=== PATIENT | female | born 2000 | race Caucasian/White ===

== ENCOUNTER 2021-07-06 08:56 | Outpatient (REF) | payer OTHER, SELFPAY | END 2021-07-06 08:57 | disposition home or self-care (01) | LOC: HO.LAB 08:56 | PROVIDERS: Visit Provider Internal Medicine | DX: Z20.822 Contact with and (suspected) exposure to COVID-19 (principal) | CPT/HCPCS: C9803; U0003; U0005 ==

== ENCOUNTER 2021-11-19 12:47 | Emergency (ER) | payer OTHER, SELFPAY ==
--- NOTE | ~2021-11-19 | XR_ITS ---
EXAMINATION: XR KNEE, LEFT CLINICAL INFORMATION: Pain. Injury. COMPARISON: Right knee x-rays the 2016 TECHNIQUE: Four views of the left knee. FINDINGS: No fracture or dislocation. No suprapatellar joint effusion. Joint spaces are well-maintained. No appreciable degenerative changes. No soft tissue swelling of the anterior knee. XR/XR knee LT 3V IMPRESSION: Unremarkable radiographs of the right knee.
[2021-11-19 13:13] VITALS: BP 149/71; PULSE 95; RESP 17; TEMP 36.3; O2SAT 98; BMI 41.6
--- NOTE | 2021-11-19 16:08 | ED_ITS ---
HPI - Extremity Problem General Chief complaint: Extremity Problem Stated complaint: l knee inj Time Seen by Provider: 11/19/21 15:42 Source: patient Mode of arrival: ambulatory Limitations: no limitations History of Present Illness HPI Narrative: 21-year-old obese female presents with left knee pain. States the pain has started 2 weeks ago, and this morning her knee was squishy and purple below her kneecap. Patient states she tore something 2 years ago but because of COVID never followed up with Orthopedics. States it hurts to walk, although she can bear weight. States ice helps reduce the swelling Related Data Previous Rx's Medication Instructions Recorded naproxen 500 mg tablet 500 mg PO BID 10 Days #20 tab 11/19/21 Allergies Allergy/AdvReac Type Severity Reaction Status Date / Time aldana AdvReac Unknown VOMITS Verified 11/19/21 13:15 CHOCOLATE Allergy Unknown HIVES FROM Uncoded 03/25/20 18:36 REESE CHOCOLATE Review of Systems Constitutional: Constitutional: Denies body ache(s), Denies chills, Denies fatigue, Denies fever(s), Denies headache(s), Denies malaise and Denies weakness Eyes: Eyes: Denies diplopia ENT: Denies vertigo, Denies dizziness, Denies headache(s) and Denies throat swelling Cardiovascular: Cardiovascular: Denies chest pain, Denies syncope, Denies leg edema, Denies lightheadedness, Denies Loss of Consciousness, Denies palpitations and Denies dyspnea Respiratory: Respiratory: Denies chest congestion, Denies cough and Denies dyspnea Gastrointestinal: Gastrointestinal: Denies abdominal pain, Denies hematochez ia, Denies constipation, Denies diarrhea and Denies vomiting Musculoskeletal: Musculoskeletal: Reports abnormal gait, Reports arthralgias, Reports joint swelling, Reports limited range of motion, Denies muscle weakness, Denies numbness and Denies tingling Neurologic: Reports abnormal gait, Denies confusion, Denies vertigo, Denies dizziness, Denies syncope, Denies headache(s), Denies numbness, Denies tingling and Denies weakness Psychiatric: Psychiatric: Denies anxiety, Denies confusion and Denies depression Endocrine: Endocrine: Denies fatigue and Denies palpitations Allergic/Immunologic: Allergic/Immunologic: Denies throat swelling [facility] Social History Social History Advance Directives: No Advance Directives Information Provided: No Physical Exam Vital Signs: Vital Signs: Last Vital Signs Temp 97.4 F 11/19/21 13:13 Pulse 95 11/19/21 13:13 Resp 17 11/19/21 13:13 BP 149/71 H 11/19/21 13:13 Pulse Ox 98 11/19/21 13:13 BMI result Body Mass Index 41.6 Const: General: No confusion Nutritional Appearance: well nourished Orientation/consciousness: No confusion Limitations: no limitations Eyes: Conjunctivae: conjunctivae normal Pupils: Equal, round and reactive pupils present EOM: EOMs intact bilaterally Neck: Neck: Yes full ROM, Yes no lymphadenopathy and Yes supple Resp: Effort & Inspection: normal respiratory effort and able to speak in complete sentences Auscultation: clear to auscultation bilaterally, no crackles, no rales, no rhonchi and no wheezes Cardio: Rate: regular rate Rhythm: regular rhythm Heart sounds: S1 normal heart sound present and S2 normal heart sound present GI: Inspection: Yes normal to inspection Palpation (GI): Soft to palpation, nontender, no guarding and not rigid Percussion: Yes normal to percussion Auscultation: normal bowel sounds Skin: General skin exam: no rashes or lesions noted Neuro: General: No confusion Cranial nerves: Yes Equal, round and reactive pupils present Extrem: Left lower extremity: normal capillary refill and knee Details: tenderness Location: of the patella Details: superiorly and inferiorly and of the popliteal fossa, swelling, abnormal ROM Details: pain with active ROM Details: with flexion and pain with passive ROM Details: with flexion and knee ligament exam normal; Negative for no ecchymosis, no crepitus, no deformity and no unusual warmth; No no cyanosis and no edema Psych: Appearance: grossly normal Affect: normal affect Attitude: cooperative Thought process: Normal thought process present Course Course Course Narrative: 21-year-old female presents with atraumatic left knee pain that started 2 weeks ago and was worse this morning. 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 On exam, patient has stable vitals, patient has a anterior mild diffusion inferior and medial to the patella. 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 Patient has intact left lower extremity pulses, sensation, motor strength, and reflexes. She does have limited range of motion of her left knee in flexion due to pain. Counseled rest, ice, compression, elevation, prescribed naproxen, gave knee immobilizer and crutches, follow-up with orthopedics. Patient verbalized agreement understanding of the plan. All of her questions were answered. Discharge Plan Discharge Clinical Impression: Effusion of knee joint, left Patient Disposition: Home, Self-Care Instructions: Swollen Knee Joint (ED), R.I.C.E. Treatment (ED) Additional Instructions: I have referred you to Orthopedics, but they should be calling you as well. Please call them at the following number if you have not heard from them by tomorrow afternoon [phone] I please use a knee immobilizer and crutches, and stay out of work until Orthopedics clears you to start working again. Please fill the prescription for naproxen and take it as prescribed Please rest, ice, elevate, and use the knee immobilizer on your left knee Please return to emergency room for any new or concerning symptoms Prescriptions: New naproxen 500 mg tablet 500 mg PO BID 10 Days Qty: 20 0RF Referrals: Abe Reese MD [Physician] - Stand Alone Forms: Work/School Release
== END 2021-11-19 16:43 | disposition home or self-care (01) ==
PROVIDERS: Emergency Provider Internal Medicine; PCP Pediatrics
DX: M25.462 Effusion, left knee (principal); E66.9 Obesity, unspecified; Z68.41 Body mass index [BMI] 40.0-44.9, adult
CPT/HCPCS: 73562; 99283

== ENCOUNTER 2021-12-06 07:42 | Outpatient (REF) | payer OTHER, SELFPAY ==
--- NOTE | ~2021-12-06 | XR_ITS ---
EXAMINATION: XR KNEE, LEFT CLINICAL INFORMATION: Pain. COMPARISON: 11/19/2021 TECHNIQUE: [place] view of the left knee. FINDINGS: There is a normal sunrise view of the patella with maintenance of the patellofemoral joint and no significant spurring or other bony abnormality appreciated. XR/XR knee LT 1V IMPRESSION: Normal sunrise view of the left knee.
== END 2021-12-06 07:43 | disposition home or self-care (01) ==
LOC: HO.HOSX 07:42
PROVIDERS: Visit Provider Physician Assistant
DX: M23.92 Unspecified internal derangement of left knee (principal)
CPT/HCPCS: 73560; 99202

== ENCOUNTER 2022-01-04 22:46 | Emergency (ER) | payer OTHER, SELFPAY ==
[2022-01-04 22:52] VITALS: BP 144/81; PULSE 105; RESP 18; TEMP 36.8; O2SAT 99; BMI 43.1
[2022-01-04] MEDS: Ondansetron ODT 4 MG TAB.RAPDIS TRANSLINGU (22:57)
[2022-01-04 23:05] LABS: MANUAL DIFF FLAG NO
[2022-01-04 23:12] LABS: Basophils Percent Auto 0.4 % (0-2); Eosinophils Absolute Auto 0.1 X10*3/uL (0.0-0.4); Eosinophils Percent Auto 0.4 % (0-4); Hematocrit 40.8 % (37.0-47.0); Hemoglobin 13.5 g/dl (12.0-16.0); Imm Gran Abs Auto 0.05 X10*3/uL (0.00-0.03); Imm Gran Pct Auto 0.4 % (0.0-0.4); Lymphocytes Absolute Auto 3.4 X10*3/uL (1.2-4.9); Lymphocytes Percent Auto 30.2 % (20-40); Mean Corpuscular HGB Conc 33.1 g/dl (31.0-35.0); Mean Corpuscular Hemoglobin 27.6 pg (27.0-33.0); Mean Corpuscular Volume 83.4 fL (80.0-98.0); Mean Platelet Volume 9.8 fL (9.4-12.3); Monocytes Absolute Auto 1.1 X10*3/uL (0.1-1.2); Monocytes Percent Auto 10.1 % (2-11); Neutrophils Absolute Auto 6.6 x10*3/uL (2.0-8.3); Neutrophils Percent Auto 58.5 % (45-73); Platelet Count 282 X10*3/uL (160-400); Red Blood Count 4.89 X10*6/uL (4.20-5.50); Red Cell Distribution Width 14.2 % (11.0-16.0); White Blood Count 11.3 X10*3/uL (4.8-10.8)
[2022-01-04 23:23] LABS: Alanine Aminotransferase 25 U/L (0-31); Albumin Level 4.3 g/dL (3.5-5.0); Alkaline Phosphatase 71 U/L (39-117); Anion Gap 14 (12-20); Aspartate Amino Transferase 21 U/L (5-31); Bilirubin Direct < 0.2 mg/dL (0.0-0.5); Bilirubin Total 0.3 mg/dL (0.0-1.0); Blood Urea Nitrogen 11 mg/dL (9-16); Calcium 9.3 mg/dL (8.4-10.2); Carbon Dioxide 24 mmol/L (22-29); Chloride 105 mmol/L (96-108); Estimated Glomerular Filt Rate > 60; Glucose Random 87 mg/dL (60-115); Potassium 4.2 mmol/L (3.3-5.1); Sodium 139 mmol/L (135-145); Total Protein 7.5 g/dL (6.5-8.0)
[2022-01-04 23:28] LABS: COVID-19 Test Negative (Negative); IDNOW Serial# 16C4AD1C; Influenza A Negative (Negative); Influenza B2 Negative (Negative)
[2022-01-04 23:55] LABS: Appearance Urine CLEAR; Color Urine YELLOW; Glucose Urine UA NEG (NEG); Leukocyte Esterase Urine NEG (NEG); Nitrite Urine NEG (NEG); Specific Gravity - Urine <= 1.005 (1.005-1.025); Urine Blood NEG (NEG); Urine Ketones NEG (NEG); Urine Protein NEG (NEG-TRACE)
[2022-01-04 23:57] LABS: UPreg QC Valid YES; Urine Pregnancy NEGATIVE (NEGATIVE)
--- NOTE | 2022-01-05 00:30 | ED_ITS ---
HPI - Nausea/Vomiting/Diarrhea General Chief complaint: Abdominal Pain Stated complaint: vomiting Time Seen by Provider: 01/05/22 00:24 Source: patient Mode of arrival: ambulatory Limitations: no limitations History of Present Illness HPI Narrative: patient history of anxiety been vomiting almost every night after eating supper for last 1 month patient denies any anxiety at this time with makes her throw up feels full after eating and she vomits after that she feels okay patient has history of slow bowels when she was young. No history of smoking marijuana /bulimia no abdominal pain or urinary symptoms no fever or chills Related Data Previous Rx's Medication Instructions Recorded metoclopramide HCl 10 mg tablet 10 mg PO .qac PRN nausea and 01/05/22 (Reglan) vomiting #60 tabs Allergies Allergy/AdvReac Type Severity Reaction Status Date / Time aldana AdvReac Unknown VOMITS Verified 12/06/21 10:34 CHOCOLATE Allergy Unknown HIVES FROM Uncoded 12/06/21 10:34 REESE CHOCOLATE Review of Systems Review of Systems: Yes all other systems are reviewed and are negative [facility] Social History Social History Patient Tobacco Use Status: Never used Tobacco Advance Directives: No Current occupational status: employed 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 Oriented X3. No acute distress. Eyes: PERRLA, No Nystagmus ENT: Pharynx normal. Oral Mucosa moist Neck: Normal inspection. Neck supple. CVS: Normal heart rate and rhythm. Pulses normal. Respiratory: No respiratory distress. Equal air entry bilateral, no wheezing/rales/rhonchi Abdomen: Soft and nontender. Bowel sounds are present, no mass palpable, no CVA tenderness Skin: Skin warm and dry. Normal skin color. Normal skin turgor. Extremities: No lower extremity edema. No calf tenderness Neuro: Oriented X 3. No motor deficit. No sensory deficit.No cerebellar signs , cranial nerves II-XII intact MDM - Nausea/Vomiting/Diarrhea MDM Narrative Medical decision making narrative: patient's symptoms likely from gastroparesis will discharge her on Reglan advised to follow-up with GI Lab Data Attestation: I reviewed the patient's lab results. Result diagrams: 01/04/22 23:00 01/04/22 23:00 Labs: Lab Results 01/04/22 01/04/22 01/04/22 Range/Units 23:00 23:00 23:00 WBC 11.3 H (4.8-10.8) X10*3/uL RBC 4.89 (4.20-5.50) X10*6/uL Hgb 13.5 (12.0-16.0) g/dl Hct 40.8 (37.0-47.0) % MCV 83.4 (80.0-98.0) fL MCH 27.6 (27.0-33.0) pg MCHC 33.1 (31.0-35.0) g/dl RDW 14.2 (11.0-16.0) % Plt Count 282 (160-400) X10*3/uL MPV 9.8 (9.4-12.3) fL Immature Gran % (Auto) 0.4 (0.0-0.4) % Neut % (Auto) 58.5 (45-73) % Lymph % (Auto) 30.2 (20-40) % [place] % (Auto) 10.1 (2-11) % Eos % (Auto) 0.4 (0-4) % Baso % (Auto) 0.4 (0-2) % Lymph # (Auto) 3.4 (1.2-4.9) X10*3/uL [place] # (Auto) 1.1 (0.1-1.2) X10*3/uL Eos # (Auto) 0.1 (0.0-0.4) X10*3/uL Baso # (Auto) 0.0 (0.0-0.2) X10*3/uL Abs Immat Gran (auto) 0.05 H (0.00-0.03) X10*3/uL Absolute Neuts (auto) 6.6 (2.0-8.3) x10*3/uL Absolute Nucleated RBC 0.000 (0.0-0.012) X10*3/uL Nucleated RBC % (auto) 0.0 (0.0-0.2) /100WBC Sodium 139 (135-145) mmol/L Potassium 4.2 (3.3-5.1) mmol/L Chloride 105 (96-108) mmol/L Carbon Dioxide 24 (22-29) mmol/L Anion Gap 14 (12-20) BUN 11 (9-16) mg/dL Creatinine 0.72 (0.5-1.4) mg/dL Estim Creat Clear Calc 171.0 Estimated GFR > 60 Random Glucose 87 (60-115) mg/dL Calcium 9.3 (8.4-10.2) mg/dL Total Bilirubin 0.3 (0.0-1.0) mg/dL Direct Bilirubin < 0.2 (0.0-0.5) mg/dL AST 21 (5-31) U/L ALT 25 (0-31) U/L Alkaline Phosphatase 71 (39-117) U/L Total Protein 7.5 (6.5-8.0) g/dL Albumin 4.3 (3.5-5.0) g/dL Urine Color Urine Appearance Urine pH (5.0-8.0) Ur Specific [place] (1.005-1.025) Urine Protein (NEG-TRACE) MG/DL Urine Glucose (UA) (NEG) MG/DL Urine Ketones (NEG) MG/DL Urine Blood (NEG) Urine Nitrite (NEG) Ur Leukocyte Esterase (NEG) Urine Test (NEGATIVE) COVID-19 (HAYLEY) (Negative) COVID-19 Clin Com Influenza Type A (PAMELA) Negative (Negative) Influenza Type B (PAMELA) Negative (Negative) Influenza A & B Note See Note 01/04/22 01/04/22 01/04/22 Range/Units 23:00 23:47 23:47 WBC (4.8-10.8) X10*3/uL RBC (4.20-5.50) X10*6/uL Hgb (12.0-16.0) g/dl Hct (37.0-47.0) % MCV (80.0-98.0) fL MCH (27.0-33.0) pg MCHC (31.0-35.0) g/dl RDW (11.0-16.0) % Plt Count (160-400) X10*3/uL MPV (9.4-12.3) fL Immature Gran % (Auto) (0.0-0.4) % Neut % (Auto) (45-73) % Lymph % (Auto) (20-40) % [place] % (Auto) (2-11) % Eos % (Auto) (0-4) % Baso % (Auto) (0-2) % Lymph # (Auto) (1.2-4.9) X10*3/uL [place] # (Auto) (0.1-1.2) X10*3/uL Eos # (Auto) (0.0-0.4) X10*3/uL Baso # (Auto) (0.0-0.2) X10*3/uL Abs Immat Gran (auto) (0.00-0.03) X10*3/uL Absolute Neuts (auto) (2.0-8.3) x10*3/uL Absolute Nucleated RBC (0.0-0.012) X10*3/uL Nucleated RBC % (auto) (0.0-0.2) /100WBC Sodium (135-145) mmol/L Potassium (3.3-5.1) mmol/L Chloride (96-108) mmol/L Carbon Dioxide (22-29) mmol/L Anion Gap (12-20) BUN (9-16) mg/dL Creatinine (0.5-1.4) mg/dL Estim Creat Clear Calc Estimated GFR Random Glucose (60-115) mg/dL Calcium (8.4-10.2) mg/dL Total Bilirubin (0.0-1.0) mg/dL Direct Bilirubin (0.0-0.5) mg/dL AST (5-31) U/L ALT (0-31) U/L Alkaline Phosphatase (39-117) U/L Total Protein (6.5-8.0) g/dL Albumin (3.5-5.0) g/dL Urine Color YELLOW Urine Appearance CLEAR Urine pH 6.0 (5.0-8.0) Ur Specific [place] <= 1.005 (1.005-1.025) Urine Protein NEG (NEG-TRACE) MG/DL Urine Glucose (UA) NEG (NEG) MG/DL Urine Ketones NEG (NEG) MG/DL Urine Blood NEG (NEG) Urine Nitrite NEG (NEG) Ur Leukocyte Esterase NEG (NEG) Urine Test NEGATIVE (NEGATIVE) COVID-19 (HAYLEY) Negative (Negative) COVID-19 Clin Com See Note Influenza Type A (PAMELA) (Negative) Influenza Type B (PAMELA) (Negative) Influenza A & B Note Discharge Plan Discharge Clinical Impression: Gastroparesis Patient Disposition: Home, Self-Care Instructions: Gastroparesis (ED) Additional Instructions: you might have gastroparesis have small meals more often with lot of liquids take Reglan 1 tablet 1 hour prior to having a meal Prescriptions: New metoclopramide HCl [Reglan] 10 mg tablet 10 mg PO .qac PRN (Reason: nausea and vomiting) Qty: 60 0RF Rx Instructions: take 1 tablet about 1 hour prior to having meals
[2022-01-05 00:45] VITALS: BP 137/73; PULSE 100; TEMP 37.1; O2SAT 100
== END 2022-01-05 00:47 | disposition home or self-care (01) ==
PROVIDERS: Emergency Provider Internal Medicine; PCP Pediatrics
DX: K31.84 Gastroparesis (principal); Z20.822 Contact with and (suspected) exposure to COVID-19; R11.10 Vomiting, unspecified; F41.9 Anxiety disorder, unspecified
CPT/HCPCS: 80053; 81003; 81025; 82248; 85025; 87502; 87635; 99283; 99284

== ENCOUNTER 2022-01-16 22:01 | Emergency (ER) | payer OTHER, SELFPAY ==
[2022-01-16 23:16] VITALS: PULSE 98; RESP 18; TEMP 36.6; O2SAT 97; BMI 42.3
[2022-01-17 00:37] LABS: MANUAL DIFF FLAG NO
[2022-01-17 00:39] LABS: Basophils Absolute Auto 0.1 X10*3/uL (0.0-0.2); Basophils Percent Auto 0.5 % (0-2); Eosinophils Absolute Auto 0.1 X10*3/uL (0.0-0.4); Eosinophils Percent Auto 0.5 % (0-4); Hematocrit 40.5 % (37.0-47.0); Hemoglobin 13.3 g/dl (12.0-16.0); Imm Gran Abs Auto 0.06 X10*3/uL (0.00-0.03); Imm Gran Pct Auto 0.5 % (0.0-0.4); Lymphocytes Absolute Auto 3.8 X10*3/uL (1.2-4.9); Mean Corpuscular HGB Conc 32.8 g/dl (31.0-35.0); Mean Corpuscular Hemoglobin 27.8 pg (27.0-33.0); Mean Corpuscular Volume 84.7 fL (80.0-98.0); Mean Platelet Volume 9.8 fL (9.4-12.3); Monocytes Absolute Auto 0.8 X10*3/uL (0.1-1.2); Monocytes Percent Auto 6.3 % (2-11); Neutrophils Absolute Auto 7.5 x10*3/uL (2.0-8.3); Neutrophils Percent Auto 61.2 % (45-73); Platelet Count 272 X10*3/uL (160-400); Red Blood Count 4.78 X10*6/uL (4.20-5.50); Red Cell Distribution Width 13.9 % (11.0-16.0); White Blood Count 12.2 X10*3/uL (4.8-10.8)
[2022-01-17 00:58] LABS: Alanine Aminotransferase 29 U/L (0-31); Albumin Level 4.4 g/dL (3.5-5.0); Alkaline Phosphatase 70 U/L (39-117); Anion Gap 13 (12-20); Aspartate Amino Transferase 21 U/L (5-31); Bilirubin Total 0.4 mg/dL (0.0-1.0); Blood Urea Nitrogen 10 mg/dL (9-16); Calcium 9.3 mg/dL (8.4-10.2); Carbon Dioxide 22 mmol/L (22-29); Chloride 105 mmol/L (96-108); Creatinine Clr Calc Pharmacy 181.7; Estimated Glomerular Filt Rate > 60; Glucose Random 89 mg/dL (60-115); Potassium 3.8 mmol/L (3.3-5.1); Sodium 136 mmol/L (135-145); Total Protein 7.5 g/dL (6.5-8.0)
--- NOTE | 2022-01-17 01:36 | ED.FEMALEGU ---
HPI - Female Genitourinary General Chief complaint: Vaginal Bleeding Stated complaint: urogenital-female Time Seen by Provider: 01/17/22 01:07 History of Present Illness HPI Narrative: patient is a 21-year-old female presents today with having slight spotting. Patient is 21 years old sexually active last menstrual period was early December. Did a home test today is positive. Went to a clinic and was told she was also . She has some minimal cramping. She does not know her blood type. Never been in the past. Was not sexually active the last few days. Patient from home. No rectal bleeding. No coughing or congestion or upper respiratory symptoms. Related Data Previous Rx's Medication Instructions Recorded metoclopramide HCl 10 mg tablet 10 mg PO .qac PRN nausea and 01/05/22 (Reglan) vomiting #60 tabs Allergies Allergy/AdvReac Type Severity Reaction Status Date / Time aldana AdvReac Unknown VOMITS Verified 01/16/22 23:15 CHOCOLATE Allergy Unknown HIVES FROM Uncoded 12/06/21 10:34 REESE CHOCOLATE Review of Systems Review of Systems: No fever no chills no diaphoresis Yes all other systems are reviewed and are negative PMFSH Past Medical History Attestation statement: The following information was validated with the patient. 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 Oriented X3. No acute distress. Eyes: Pupils equal, round and reactive to light. ENT: Pharynx normal. Neck: Normal inspection. Neck supple. No lymph nodes noted. No crepitus CVS: Normal heart rate and rhythm. Pulses normal. Normal S1 and S2 Respiratory: No respiratory distress. Breath sounds normal. No Wheezing. No rales Abdomen: Soft and nontender. No rigidity. No distention. good BS x4 Pelvic exam patient refused pelvic exam at this time Skin: Skin warm and dry. Normal skin color. Normal skin turgor. Extremities: No lower extremity edema. Neurovascular intact to all extremities. No Lacerations. No Rash Neuro: Oriented X 3. No motor deficit. No sensory deficit. Moving all extermities. No slurred speech MDM - Female Genitourinary MDM Narrative Medical decision making narrative: Patient's blood type is A positive. Patient's quant came back at 55. Small risk of ectopic still exist. Explained to patient worsened pain immediately return. Patient needs follow-up on an outpatient basis with OBGYN. A repeat blood draw needs to be done on January 18 at around noon time. With an appointment to see Dr. Sarahi Vicente on January 18 in the afternoon. Case discussed with Dr. Mcclain . agree with plan of follow-up. Currently in stable condition will discharge home. Medical Records Attestation: I reviewed the patient's medical records. Lab Data Attestation: I reviewed the patient's lab results. Result diagrams: 01/17/22 00:33 01/17/22 00:33 Labs: Lab Results 01/17/22 01/17/22 01/17/22 Range/Units 00:33 00:33 00:33 WBC 12.2 H (4.8-10.8) X10*3/uL RBC 4.78 (4.20-5.50) X10*6/uL Hgb 13.3 (12.0-16.0) g/dl Hct 40.5 (37.0-47.0) % MCV 84.7 (80.0-98.0) fL MCH 27.8 (27.0-33.0) pg MCHC 32.8 (31.0-35.0) g/dl RDW 13.9 (11.0-16.0) % Plt Count 272 (160-400) X10*3/uL MPV 9.8 (9.4-12.3) fL Immature Gran % (Auto) 0.5 H (0.0-0.4) % Neut % (Auto) 61.2 (45-73) % Lymph % (Auto) 31.0 (20-40) % [place] % (Auto) 6.3 (2-11) % Eos % (Auto) 0.5 (0-4) % Baso % (Auto) 0.5 (0-2) % Lymph # (Auto) 3.8 (1.2-4.9) X10*3/uL [place] # (Auto) 0.8 (0.1-1.2) X10*3/uL Eos # (Auto) 0.1 (0.0-0.4) X10*3/uL Baso # (Auto) 0.1 (0.0-0.2) X10*3/uL Abs Immat Gran (auto) 0.06 H (0.00-0.03) X10*3/uL Absolute Neuts (auto) 7.5 (2.0-8.3) x10*3/uL Absolute Nucleated RBC 0.000 (0.0-0.012) X10*3/uL Nucleated RBC % (auto) 0.0 (0.0-0.2) /100WBC Sodium 136 (135-145) mmol/L Potassium 3.8 (3.3-5.1) mmol/L Chloride 105 (96-108) mmol/L Carbon Dioxide 22 (22-29) mmol/L Anion Gap 13 (12-20) BUN 10 (9-16) mg/dL Creatinine 0.67 (0.5-1.4) mg/dL Estim Creat Clear Calc 181.7 Estimated GFR > 60 Random Glucose 89 (60-115) mg/dL Calcium 9.3 (8.4-10.2) mg/dL Total Bilirubin 0.4 (0.0-1.0) mg/dL AST 21 (5-31) U/L ALT 29 (0-31) U/L Alkaline Phosphatase 70 (39-117) U/L Total Protein 7.5 (6.5-8.0) g/dL Albumin 4.4 (3.5-5.0) g/dL Beta HCG, Quant 55 mIU/mL Urine Color Urine Appearance Urine pH (5.0-8.0) Ur Specific [place] (1.005-1.025) Urine Protein (NEG-TRACE) MG/DL Urine Glucose (UA) (NEG) MG/DL Urine Ketones (NEG) MG/DL Urine Blood (NEG) Urine Nitrite (NEG) Ur Leukocyte Esterase (NEG) Urine RBC (0) /HPF Urine WBC (0-4) /HPF Ur Squamous Epith Cells /LPF Urine Bacteria /LPF Urine Mucus /LPF Blood Type A Positive 01/17/22 Range/Units 01:46 WBC (4.8-10.8) X10*3/uL RBC (4.20-5.50) X10*6/uL Hgb (12.0-16.0) g/dl Hct (37.0-47.0) % MCV (80.0-98.0) fL MCH (27.0-33.0) pg MCHC (31.0-35.0) g/dl RDW (11.0-16.0) % Plt Count (160-400) X10*3/uL MPV (9.4-12.3) fL Immature Gran % (Auto) (0.0-0.4) % Neut % (Auto) (45-73) % Lymph % (Auto) (20-40) % [place] % (Auto) (2-11) % Eos % (Auto) (0-4) % Baso % (Auto) (0-2) % Lymph # (Auto) (1.2-4.9) X10*3/uL [place] # (Auto) (0.1-1.2) X10*3/uL Eos # (Auto) (0.0-0.4) X10*3/uL Baso # (Auto) (0.0-0.2) X10*3/uL Abs Immat Gran (auto) (0.00-0.03) X10*3/uL Absolute Neuts (auto) (2.0-8.3) x10*3/uL Absolute Nucleated RBC (0.0-0.012) X10*3/uL Nucleated RBC % (auto) (0.0-0.2) /100WBC Sodium (135-145) mmol/L Potassium (3.3-5.1) mmol/L Chloride (96-108) mmol/L Carbon Dioxide (22-29) mmol/L Anion Gap (12-20) BUN (9-16) mg/dL Creatinine (0.5-1.4) mg/dL Estim Creat Clear Calc Estimated GFR Random Glucose (60-115) mg/dL Calcium (8.4-10.2) mg/dL Total Bilirubin (0.0-1.0) mg/dL AST (5-31) U/L ALT (0-31) U/L Alkaline Phosphatase (39-117) U/L Total Protein (6.5-8.0) g/dL Albumin (3.5-5.0) g/dL Beta HCG, Quant mIU/mL Urine Color YELLOW Urine Appearance CLEAR Urine pH 6.0 (5.0-8.0) Ur Specific [place] 1.010 (1.005-1.025) Urine Protein NEG (NEG-TRACE) MG/DL Urine Glucose (UA) NEG (NEG) MG/DL Urine Ketones 40 (NEG) MG/DL Urine Blood 3+ H (NEG) Urine Nitrite NEG (NEG) Ur Leukocyte Esterase NEG (NEG) Urine RBC 1-4 (0) /HPF Urine WBC 0-2 (0-4) /HPF Ur Squamous Epith Cells 2+ /LPF Urine Bacteria 1+ /LPF Urine Mucus TRACE /LPF Blood Type Discharge Plan Discharge Clinical Impression: Vaginal bleeding, Threatened , Ectopic without intrauterine Patient Disposition: Home, Self-Care Instructions: Ectopic (DC), Threatened Miscarriage (ED) Additional Instructions: small risk of ectopic exists. Worsen pain return to the emergency department immediately. Please closely follow-up with OBGYN. The phone number provided below. Must have blood drawn tomorrow at noon. Follow-up with Dr. Mcclain in the afternoon tomorrow. Prescriptions: No Action metoclopramide HCl [Reglan] 10 mg tablet 10 mg PO .qac PRN (Reason: nausea and vomiting) Qty: 60 0RF Rx Instructions: take 1 tablet about 1 hour prior to having meals Referrals: Juan Jose Mcclain MD [Physician] -
[2022-01-17 01:53] LABS: Appearance Urine CLEAR; Color Urine YELLOW; Glucose Urine UA NEG (NEG); Leukocyte Esterase Urine NEG (NEG); Nitrite Urine NEG (NEG); UACC Culture Trigger NO; Urine Blood 3+ (NEG); Urine Ketones 40 MG/DL (NEG); Urine Protein NEG (NEG-TRACE)
[2022-01-17 02:00] VITALS: BP 119/76; PULSE 98; RESP 16; TEMP 36.9; O2SAT 98
[2022-01-17 02:03] LABS: HCG Quantitative 55 mIU/mL
[2022-01-17 02:09] LABS: Bacteria Urine 1+ /LPF; Mucus Urine TRACE /LPF; Squamous Epithelial Cell Urine 2+ /LPF; WBC Urine 0-2 /HPF (0-4)
--- NOTE | 2022-01-17 02:45 | PM.GYNCN ---
[employer] - CN: HPI Data of Consult Consult date: 01/17/22 Primary Care Provider: Unknown Physician Consult Narrative Narrative: I was consulted on Brisa Rowe who is a 21 year old female who presented to the emergency with having slight vaginal spotting and mild cramping.? LMP early December.? The patient had a positive test done today. 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 GUSTAFSON: Abdomen: Soft and nontender. No rigidity. No distention. good BS x4 ? Pelvic exam patient refused pelvic exam at this time [employer] - Results Labs CBC & Chem 7: 01/17/22 00:33 01/17/22 00:33 Labs: Short CBC 01/17/22 Range/Units 00:33 WBC 12.2 H (4.8-10.8) X10*3/uL Hgb 13.3 (12.0-16.0) g/dl Hct 40.5 (37.0-47.0) % Plt Count 272 (160-400) X10*3/uL BMP 01/17/22 00:33 Sodium 136 Potassium 3.8 Chloride 105 Carbon Dioxide 22 BUN 10 Creatinine 0.67 Calcium 9.3 Liver Function 01/17/22 Range/Units 00:33 Total Bilirubin 0.4 (0.0-1.0) mg/dL AST 21 (5-31) U/L ALT 29 (0-31) U/L Alkaline Phosphatase 70 (39-117) U/L Albumin 4.4 (3.5-5.0) g/dL Urine 01/17/22 Range/Units 01:46 Urine Color YELLOW Urine Appearance CLEAR Urine pH 6.0 (5.0-8.0) Ur Specific [place] 1.010 (1.005-1.025) Urine Protein NEG (NEG-TRACE) MG/DL Urine Glucose (UA) NEG (NEG) MG/DL Assessment and Plan (1) Early stage of : Status: Acute Plan I recommended the following: Follow-up outpatient HCG in 48 hours, SAB/ectopic warnings to be given to patient, she is to come back to the emergency room in case of abdominal/pelvic pain, heavy vaginal bleeding otherwise follow-up in the office in 48 hours hCG I spent a total of 20 minutes reviewing the chart, communicating with the ER provider and documenting the medical record
== END 2022-01-17 03:12 | disposition home or self-care (01) ==
PROVIDERS: Emergency Provider Emergency Medicine Emergency Medical Services
DX: O20.0 Threatened abortion (principal); Z3A.00 Weeks of gestation of pregnancy not specified; Z79.899 Other long term (current) drug therapy
CPT/HCPCS: 36415; 80053; 81001; 84702; 85025; 86900; 86901; 96360; 99283; 99284

== ENCOUNTER 2022-01-19 08:59 | Outpatient (REF) | payer OTHER, SELFPAY ==
[2022-01-19 10:06] LABS: HCG Quantitative 121 mIU/mL
== END 2022-01-19 09:00 | disposition home or self-care (01) ==
LOC: HO.10HDL 08:59
PROVIDERS: Visit Provider Obstetrics & Gynecology
DX: Z34.90 Encounter for supervision of normal pregnancy, unspecified, unspecified trimester (principal)
CPT/HCPCS: 36415; 84702

== ENCOUNTER 2022-01-19 10:33 | Outpatient (REF) | payer OTHER, SELFPAY ==
[2022-01-19 18:07] LABS: CT PCR NOT DETECTED (Not Detect.); NG PCR NOT DETECTED (Not Detect.)
== END 2022-01-19 10:34 | disposition home or self-care (01) ==
LOC: HO.LAB 10:33
PROVIDERS: Visit Provider Obstetrics & Gynecology
DX: O26.851 Spotting complicating pregnancy, first trimester (principal)
CPT/HCPCS: 87491; 87591; 99212

== ENCOUNTER 2022-01-21 08:07 | Outpatient (REF) | payer OTHER, SELFPAY ==
[2022-01-21 09:07] LABS: HCG Quantitative 188 mIU/mL
== END 2022-01-21 08:08 | disposition home or self-care (01) ==
LOC: HO.LAB 08:07
PROVIDERS: Visit Provider Obstetrics & Gynecology
DX: O26.851 Spotting complicating pregnancy, first trimester (principal)
CPT/HCPCS: 36415; 84702; 86850; 86900

== ENCOUNTER 2022-01-23 11:35 | Outpatient (REF) | payer OTHER, SELFPAY ==
[2022-01-23 13:09] LABS: HCG Quantitative 225 mIU/mL
== END 2022-01-23 11:36 | disposition home or self-care (01) ==
LOC: HO.LAB 11:35
PROVIDERS: PCP Pediatrics; Visit Provider Obstetrics & Gynecology
DX: O26.851 Spotting complicating pregnancy, first trimester (principal)
CPT/HCPCS: 36415; 84702

== ENCOUNTER 2022-01-24 10:58 | Outpatient (REF) | payer OTHER, SELFPAY ==
--- NOTE | ~2022-01-24 | US_ITS ---
EXAMINATION: US OBSTETRICAL ULTRASOUND CLINICAL INFORMATION: Positive with spotting and cramping. COMPARISON: None. LMP: 12/11/2021. Gestational age by maternal dates is 6 weeks 2 days. Estimated date of delivery by maternal dates is 09/17/2022. TECHNIQUE: Both transabdominal and endovaginal scanning was performed. FINDINGS: A definite gestational sac is not seen. There is a tiny rounded fluid collection seen in the endometrial canal measuring only 3 mm in size. A yolk sac is not identified. A pole was not seen. A heart rate is not detected. MATERNAL ADNEXA: The right maternal ovary measures 4.0 x 2.4 x 2.4 cm. A possible corpus luteum cyst measuring 1.2 x 1.1 x 1.7 cm is seen. The left maternal ovary measures 3.0 x 2.3 x 2.4 cm and appears normal. There is no significant maternal adnexal mass. No maternal pelvic ascites. US/US OB pelvic and transvaginal IMPRESSION: There is a question of a tiny fluid collection within the uterus measuring 3 mm in diameter which could represent a very early gestational sac. Recommend correlation with beta hCG and follow-up ultrasound in one week's time.
== END 2022-01-24 10:59 | disposition home or self-care (01) ==
LOC: HO.US 10:58
PROVIDERS: PCP Pediatrics; Visit Provider Obstetrics & Gynecology
DX: O26.851 Spotting complicating pregnancy, first trimester (principal); Z3A.01 Less than 8 weeks gestation of pregnancy
CPT/HCPCS: 76801; 76817; 99212

== ENCOUNTER 2022-01-25 07:54 | Outpatient (REF) | payer OTHER, SELFPAY ==
[2022-01-25 09:37] LABS: HCG Quantitative 246 mIU/mL
== END 2022-01-25 07:55 | disposition home or self-care (01) ==
LOC: HO.LAB 07:54
PROVIDERS: PCP Pediatrics; Visit Provider Obstetrics & Gynecology
DX: O26.851 Spotting complicating pregnancy, first trimester (principal)
CPT/HCPCS: 36415; 84702

== ENCOUNTER 2022-01-27 09:04 | Outpatient (REF) | payer OTHER, SELFPAY ==
--- NOTE | ~2022-01-27 | US_ITS ---
EXAMINATION: US OBSTETRICAL ULTRASOUND CLINICAL INFORMATION: Abnormal bed at the GE 265 miu/ml 01/27/2022. COMPARISON: None. LMP: 12/21/2021. Gestational age by maternal dates is 6 weeks and 5 days. Estimated date of delivery by maternal dates is 09/17/2022. TECHNIQUE: Routine transabdominal and transvaginal imaging of pelvis is performed. FINDINGS: There is a single intrauterine gestational sac with nonvisualization of yolk sac and pole. The endometrial thickness measures 1.28 cm on transvaginal ultrasound. There is a subtle ill-defined anechoic area in the endometrium measuring 0.35 x 0.28 x 0.28 cm 24 weeks 5 days. No pole seen. MATERNAL ADNEXA: The right maternal ovary measures 3.6 x 2.5 x 1.6 cm. A corpus luteal anechoic cyst is seen. The left maternal ovary measures 2.9 x 2.0 x 1.7 cm. No focal lesion seen. There is no significant maternal adnexal mass. No maternal pelvic ascites. US/US OB pelvic and transvaginal IMPRESSION: There is a anechoic area in the endometrial question small gestational sac. No pole, no heart rate seen. The endometrial stripe is minimally thickened measuring 1.28 cm. Recommend ultrasound pelvis follow-up in 1-2 weeks Suspect small corpus luteal cyst, right ovary. Preliminary results were called by pathology technologist to [facility] the [facility].
[2022-01-27 10:32] LABS: HCG Quantitative 265 mIU/mL
== END 2022-01-27 09:05 | disposition home or self-care (01) ==
LOC: HO.LAB 09:04
PROVIDERS: PCP Pediatrics; Visit Provider Obstetrics & Gynecology
DX: O26.851 Spotting complicating pregnancy, first trimester (principal)
CPT/HCPCS: 36415; 76801; 76817; 84702; 99212

== ENCOUNTER 2022-01-29 07:40 | Emergency (ER) | payer OTHER, SELFPAY | END 2022-01-29 08:04 | disposition left against medical advice (07) | PROVIDERS: Emergency Provider Emergency Medicine; PCP Pediatrics | DX: R79.89 Other specified abnormal findings of blood chemistry (principal) ==

== ENCOUNTER 2022-01-31 10:59 | Outpatient (REF) | payer OTHER, SELFPAY ==
[2022-01-31 11:54] LABS: HCG Quantitative 326 mIU/mL
== END 2022-01-31 11:00 | disposition home or self-care (01) ==
LOC: HO.LAB 10:59
PROVIDERS: PCP Pediatrics; Visit Provider Obstetrics & Gynecology
DX: Z34.90 Encounter for supervision of normal pregnancy, unspecified, unspecified trimester (principal)
CPT/HCPCS: 36415; 84702

== ENCOUNTER 2022-04-16 04:53 | Emergency (ER) | payer OTHER, SELFPAY ==
[2022-04-16 05:16] VITALS: BP 151/102; PULSE 98; RESP 20; TEMP 36.6; O2SAT 97; BMI 43.5
[2022-04-16 05:23] LABS: Appearance Urine Cloudy; Color Urine Yellow; Glucose Urine UA 100 mg/dL (Negative); Leukocyte Esterase Urine Negative (Negative); Nitrite Urine Negative (Negative); PH 7.5 (5.0-9.0); Urine Blood Negative (Negative); Urine Ketones Negative (Negative); Urine Protein Negative (Neg-Trace)
[2022-04-16 05:28] LABS: Bacteria Urine Trace (None Seen); Hyaline Casts Urine 0-2 /LPF (0-2); RBC Urine 0-2 /HPF (0-2); WBC Urine 0-5 /HPF (0-5)
--- OUTSIDE RECORDS SUMMARY | 2022-04-16 07:51 | XMS_ITS | Continuity of Care Document ---
:2000 Demographics Address [address] [place] [address]
--- OUTSIDE RECORDS SUMMARY | 2022-04-16 07:51 | XMS_ITS | Continuity of Care Document ---
:2000 Demographics Address [address] [place] [address] Mobile Email Address Email Address Preferred Language Hungarian
--- OUTSIDE RECORDS SUMMARY | 2022-04-16 07:52 | XMS_ITS | Continuity of Care Document ---
:2000 Demographics Address [address] [place] [address] Mobile Email Address Email Address Preferred Language Turkmen Marital Status Single Yazidi Affiliation None Race White
--- NOTE | 2022-04-16 07:54 | ED.GENADULT ---
HPI - General Adult General Chief complaint: General Medical Stated complaint: 6 weeks /Vomiting Time Seen by Provider: 04/16/22 07:46 Source: patient Mode of arrival: ambulatory Limitations: no limitations History of Present Illness HPI narrative: 22-year-old female about 6 weeks by date presented with intractable vomiting for the past 3 weeks, patient stated that she mostly vomited everything she eat and drink and unable to keep food down her stoma, patient otherwise declined abdominal pain, no abdominal cramps, no vaginal bleeding. Patient will have her 1st care visit in 10 days with hematology technician. But at the moment patient has no Ob symptoms. Related Data Home Medications Medication Instructions Recorded Confirmed prenat.vits,jemma,[id number]-[id number]-[id number] 1 tab PO DAILY 01/24/22 Previous Rx's Medication Instructions Recorded metoclopramide HCl 10 mg tablet 10 mg PO .qac PRN nausea and 01/05/22 (Reglan) vomiting #60 tabs Allergies Allergy/AdvReac Type Severity Reaction Status Date / Time aldana AdvReac Unknown VOMITS Verified 01/19/22 10:15 CHOCOLATE Allergy Unknown HIVES FROM Uncoded 01/19/22 10:15 REESE CHOCOLATE Review of Systems Review of Systems: All other systems are reviewed and are negative Constitutional: Reports as per HPI and Reports no additional constitutional complaints Eyes: Reports as per HPI and Reports no additional eye complaints Reports system reviewed and no additional complaints, except as documented Cardiovascular: Reports as per HPI and Reports no additional cardiovascular complaints Respiratory: Reports as per HPI and Reports no additional respiratory complaints Gastrointestinal: Reports as per HPI and Reports no additional gastrointestinal complaints Genitourinary: Reports no additional female genitourinary complaints Musculoskeletal: Reports no additional musculoskeletal complaints Skin/Breast: Reports system reviewed and no additional complaints, except as docu Psychiatric: Reports no additional psychiatric complaints Endocrine: Reports no additional endocrine complaints Hematologic/Lymphatic: Reports no additional hematologic/lymphatic complaints Allergic/Immunologic: Reports no additional allergic/immunologic complaints Reports system reviewed and no additional complaints, except as documented and Reports Abnormal speech present [facility] Social History Social History Patient Tobacco Use Status: Never used Tobacco Use of substances other than those prescribed or required for medical reasons: No Advance Directives: No Advance Directives Information Provided: Yes Current occupational status: employed 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 Blood pressure normal. Heart rate normal. Respiration rate normal. Temperature normal. Oxygen saturation normal. Appearance: Alert. Oriented X3. No acute distress. Head: Normal external exam. Normocephalic. Atraumatic. No Granados signs noted. No raccoon eyes noted Eyes: PERRLA. EOMI. Conjunctiva and sclera normal. Eyelids normal. ENT: TM's Normal. Pharynx normal. Uvula midline. Moist mucous membranes. No trismus noted. No drooling noted. No muffled voice noted. Neck: Normal inspection. Neck supple. FROM. No adenopathy. Thyroid Normal. No meningeal signs. No neck mass noted. CVS: Normal heart rate and rhythm. Heart sound normal. No murmurs noted. Pulses normal throughout. Respiratory: No respiratory distress. Painless inspiration. Breath sounds normal. No wheezes/rales/rhonchi noted. Chest nontender. No accessory muscle usage noted or decreased air movement noted. Abdomen: Soft and nontender. Bowel sounds normal in all 4 quadrants. No distention noted. No organomegaly noted. No visible injury noted. Back: No CVA tenderness. Full range of motion noted. Skin: Skin warm and dry. Normal skin color. Normal skin turgor. No rashes/lesions/lacerations noted. Extremities: No lower extremity edema. Extremities exhibit normal range of motion. Extremities nontender. Neuro: Oriented X 3. Cranial nerve exam: II-XII are grossly intact No motor deficit. No sensory deficit. Reflexes normal. Course Course Course Narrative: Patient feels better, no abdominal pain, able to tolerate p.o. intake without nausea or vomiting. Patient was instructed to follow-up with her Ob for her care. Medical Decision Making Lab Data Lab results reviewed: Yes I reviewed the patient's lab results. Result diagrams: 04/16/22 08:12 04/16/22 08:12 Labs: Lab Results 04/16/22 04/16/22 04/16/22 Range/Units 05:17 08:12 08:12 WBC 9.3 (4.8-10.8) X10*3/uL RBC 4.78 (4.20-5.50) X10*6/uL Hgb 13.2 (12.0-16.0) g/dl Hct 40.1 (37.0-47.0) % MCV 83.9 (80.0-98.0) fL MCH 27.6 (27.0-33.0) pg MCHC 32.9 (31.0-35.0) g/dl RDW 14.1 (11.0-16.0) % Plt Count 275 (160-400) X10*3/uL MPV 9.5 (9.4-12.3) fL Immature Gran % (Auto) 0.6 H (0.0-0.4) % Neut % (Auto) 53.6 (45-73) % Lymph % (Auto) 35.1 (20-40) % [place] % (Auto) 9.2 (2-11) % Eos % (Auto) 1.0 (0-4) % Baso % (Auto) 0.5 (0-2) % Lymph # (Auto) 3.3 (1.2-4.9) X10*3/uL [place] # (Auto) 0.9 (0.1-1.2) X10*3/uL Eos # (Auto) 0.1 (0.0-0.4) X10*3/uL Baso # (Auto) 0.1 (0.0-0.2) X10*3/uL Abs Immat Gran (auto) 0.06 H (0.00-0.03) X10*3/uL Absolute Neuts (auto) 5.0 (2.0-8.3) x10*3/uL Absolute Nucleated RBC 0.000 (0.0-0.012) X10*3/uL Nucleated RBC % (auto) 0.0 (0.0-0.2) /100WBC Sodium 138 (135-145) mmol/L Potassium 4.8 D (3.3-5.1) mmol/L Chloride 106 (96-108) mmol/L Carbon Dioxide 23 (22-29) mmol/L Anion Gap 14 (12-20) BUN 9 (9-16) mg/dL Creatinine 0.63 (0.5-1.4) mg/dL Estim Creat Clear Calc 188.5 Estimated GFR > 60 Random Glucose 90 (60-115) mg/dL Calcium 8.9 (8.4-10.2) mg/dL Total Bilirubin 0.2 (0.0-1.0) mg/dL Direct Bilirubin < 0.2 (0.0-0.5) mg/dL AST 18 (5-31) U/L ALT 30 (0-31) U/L Alkaline Phosphatase 61 (39-117) U/L Total Protein 6.8 (6.5-8.0) g/dL Albumin 3.9 (3.5-5.0) g/dL Lipase 45 (8-78) U/L Beta HCG, Quant 1320 mIU/mL Urine Color Yellow Urine Appearance Cloudy Urine pH 7.5 (5.0-9.0) Ur Specific [place] 1.010 (1.005-1.025) Urine Protein Negative (Neg-Trace) mg/dL Urine Glucose (UA) 100 H (Negative) mg/dL Urine Ketones Negative (Negative) mg/dL Urine Blood Negative (Negative) Urine Nitrite Negative (Negative) Ur Leukocyte Esterase Negative (Negative) Urine RBC 0-2 (0-2) /HPF Urine WBC 0-5 (0-5) /HPF Ur Squamous Epith Cells 3-5 (0-2) /HPF Urine Bacteria Trace (None Seen) Hyaline Casts 0-2 (0-2) /LPF Discharge Plan Discharge Clinical Impression: Hyperemesis gravidarum Patient Disposition: Home, Self-Care Instructions: Hyperemesis Gravidarum (ED) Additional Instructions: Follow-up with your OB for care. Prescriptions: No Action metoclopramide HCl [Reglan] 10 mg tablet 10 mg PO .qac PRN (Reason: nausea and vomiting) Qty: 60 0RF Rx Instructions: take 1 tablet about 1 hour prior to having meals prenat.vits,jemma,sry-[id number]-hybcq Tablet 1 tab PO DAILY Referrals: Physician,Unknown J [Primary Care Provider] -
[2022-04-16 07:59] VITALS: BP 137/70
[2022-04-16 08:15] LABS: MANUAL DIFF FLAG NO
[2022-04-16 08:16] LABS: Basophils Absolute Auto 0.1 X10*3/uL (0.0-0.2); Basophils Percent Auto 0.5 % (0-2); Eosinophils Absolute Auto 0.1 X10*3/uL (0.0-0.4); Hematocrit 40.1 % (37.0-47.0); Hemoglobin 13.2 g/dl (12.0-16.0); Imm Gran Abs Auto 0.06 X10*3/uL (0.00-0.03); Imm Gran Pct Auto 0.6 % (0.0-0.4); Lymphocytes Absolute Auto 3.3 X10*3/uL (1.2-4.9); Lymphocytes Percent Auto 35.1 % (20-40); Mean Corpuscular HGB Conc 32.9 g/dl (31.0-35.0); Mean Corpuscular Hemoglobin 27.6 pg (27.0-33.0); Mean Corpuscular Volume 83.9 fL (80.0-98.0); Mean Platelet Volume 9.5 fL (9.4-12.3); Monocytes Absolute Auto 0.9 X10*3/uL (0.1-1.2); Monocytes Percent Auto 9.2 % (2-11); Neutrophils Percent Auto 53.6 % (45-73); Platelet Count 275 X10*3/uL (160-400); Red Blood Count 4.78 X10*6/uL (4.20-5.50); Red Cell Distribution Width 14.1 % (11.0-16.0); White Blood Count 9.3 X10*3/uL (4.8-10.8)
[2022-04-16 08:27] VITALS: BP 137/70; PULSE 100; RESP 18; O2SAT 100
[2022-04-16 08:31] LABS: Alanine Aminotransferase 30 U/L (0-31); Albumin Level 3.9 g/dL (3.5-5.0); Alkaline Phosphatase 61 U/L (39-117); Anion Gap 14 (12-20); Aspartate Amino Transferase 18 U/L (5-31); Bilirubin Direct < 0.2 mg/dL (0.0-0.5); Bilirubin Total 0.2 mg/dL (0.0-1.0); Blood Urea Nitrogen 9 mg/dL (9-16); Calcium 8.9 mg/dL (8.4-10.2); Carbon Dioxide 23 mmol/L (22-29); Chloride 106 mmol/L (96-108); Creatinine Clr Calc Pharmacy 188.5; Estimated Glomerular Filt Rate > 60; Glucose Random 90 mg/dL (60-115); Lipase 45 U/L (8-78); Potassium 4.8 mmol/L (3.3-5.1); Sodium 138 mmol/L (135-145); Total Protein 6.8 g/dL (6.5-8.0)
[2022-04-16] MEDS: 0.9 % Sodium Chloride 1,000 ML 999 ML IV (08:51)
[2022-04-16] MEDS: ondansetron HCL 4 MG/2 ML VIAL IVPUSH (08:52)
[2022-04-16 10:10] VITALS: BP 127/70; PULSE 101; RESP 18; O2SAT 100
--- NOTE | 2022-04-16 10:42 | PC.NURSE ---
Passed PO challenge, Dr Umana aware. Awaits discharge pending HCG level
[2022-04-16 11:10] LABS: HCG Quantitative 1320 mIU/mL
[2022-04-16 11:14] VITALS: BP 131/80; PULSE 96; RESP 18; TEMP 37.1; O2SAT 98
== END 2022-04-16 11:33 | disposition home or self-care (01) ==
PROVIDERS: Emergency Provider Emergency Medicine
DX: O21.0 Mild hyperemesis gravidarum (principal); Z3A.01 Less than 8 weeks gestation of pregnancy; Z79.899 Other long term (current) drug therapy
CPT/HCPCS: 36415; 80048; 80076; 81001; 83690; 84702; 85025; 96374; 99284; J2405

== ENCOUNTER 2022-06-21 17:49 | Emergency (ER) | payer OTHER, SELFPAY | END 2022-06-21 19:21 | disposition left against medical advice (07) | LOC: HO.ED 19:21 | PROVIDERS: Emergency Provider Emergency Medicine | DX: R11.10 Vomiting, unspecified (principal) ==

== ENCOUNTER 2022-08-31 15:29 | Emergency (ER) | payer OTHER, SELFPAY ==
--- NOTE | 2022-08-31 15:36 | ED_ITS ---
HPI - Fall General Chief Complaint: Fall <Aishwarya Shen CNP - Last Filed: 08/31/22 15:45> Stated Complaint: fell 08/31 left hip pain 25 wks <Aishwarya Shen CNP - Last Filed: 08/31/22 15:45> Time Seen by Provider: 08/31/22 15:44 <Aishwarya Shen CNP - Last Filed: 08/31/22 15:45> Source: patient <DAVE Smith - Last Filed: 08/31/22 16:54> Mode of arrival: ambulatory <DAVE Smith - Last Filed: 08/31/22 16:54> Limitations: no limitations <DAVE Smith - Last Filed: 08/31/22 16:54> History of Present Illness HPI Narrative: 22-year-old female currently 26 weeks with estimated delivery date of 12/14/2022 your presents to the ER for evaluation of left hip pain after a fall around 230 today. She states she was walking down somewhat in stairs in her aunt's house wearing socks when she accidentally slipped. She tried catching herself on the railing, hit her left hip on 2 stairs when she fell. She caught herself with her left foot and did not fall down the 3rd stare. She did not hit her head or sustain any other injuries. She states she has been having left hip pain with ambulation since. The pain is in the front of the hip and extends to the side of the hip. She states since the injury she has been having good movement. No vaginal bleeding or cramping. [facility] who told her it was safe to come to [facility] for evaluation and that she did not need to go to [facility]. <DAVE Smith - Last Filed: 08/31/22 16:54> complaint: fall <DAVE Smith - Last Filed: 08/31/22 16:54> Onset (ago): hour(s) (2) <DAVE Smith - Last Filed: 08/31/22 16:54> Fall from: standing <DAVE Smith - Last Filed: 08/31/22 16:54> Fall witnessed: no <DAVE Smith - Last Filed: 08/31/22 16:54> Place fall occurred: home <DAVE Smith - Last Filed: 08/31/22 16:54> Loss of consciousness: none <DAVE Smith - Last Filed: 08/31/22 16:54> Prolonged down time: no <DAVE Smith - Last Filed: 08/31/22 16:54> Symptoms prior to fall: none <DAVE Smith - Last Filed: 08/31/22 16:54> Context: tripped/slipped <DAVE Smith - Last Filed: 08/31/22 16:54> Location of injury: pelvis <DAVE Smith - Last Filed: 08/31/22 16:54> Severity: moderate <DAVE Smith - Last Filed: 08/31/22 16:54> Quality: aching <DAVE Smith - Last Filed: 08/31/22 16:54> Associated symptoms (after fall): denies <DAVE Smith - Last Filed: 08/31/22 16:54> Related Data Home Medications: Home Medications Medication Instructions Recorded Confirmed prenat.vits,jemma,ocu-bqmp-mfaje 1 tab PO DAILY 01/24/22 Previous Rx's Medication Instructions Recorded metoclopramide HCl 10 mg tablet 10 mg PO .qac PRN nausea and 01/05/22 (Reglan) vomiting #60 tabs <Aishwarya Shen CNP - Last Filed: 08/31/22 15:45> Allergies/Adverse Reactions: Allergies Allergy/AdvReac Type Severity Reaction Status Date / Time aldana AdvReac Unknown VOMITS Verified 01/19/22 10:15 CHOCOLATE Allergy Unknown HIVES FROM Uncoded 01/19/22 10:15 REESE CHOCOLATE <Aishwarya Shen CNP - Last Filed: 08/31/22 15:45> Review of Systems Review of Systems: Yes all other systems are reviewed and are negative <DAVE Smith - Last Filed: 08/31/22 16:54> PMFSH Social History Social History: Social History Patient Tobacco Use Status: Never used Tobacco Advance Directives: No Advance Directives Information Provided: No Current occupational status: employed 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, 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 <Aishwarya Justinacindy Shen CNP - Last Filed: 08/31/22 15:45> Physical Exam Vital Signs: Vital Signs: Last Vital Signs Temp 98 F 08/31/22 15:37 Pulse 124 H 08/31/22 15:37 Resp 16 08/31/22 15:37 BP 130/76 08/31/22 15:37 Pulse Ox 96 08/31/22 15:37 O2 Del Method 08/31/22 15:37 BMI result Body Mass Index 95.3 <Aishwarya Shen CNP - Last Filed: 08/31/22 15:45> Vital Signs: Last Vital Signs Temp 98 F 08/31/22 15:37 Pulse 124 H 08/31/22 15:37 Resp 16 08/31/22 15:37 BP 130/76 08/31/22 15:37 Pulse Ox 96 08/31/22 15:37 O2 Del Method 08/31/22 15:37 BMI result Body Mass Index 95.3 <DAVE Smith - Last Filed: 08/31/22 16:54> Appearance: Alert. Oriented X3. No acute distress. HEENT: normal inspection CVS: Normal heart rate and rhythm. Pulses normal. Respiratory: No respiratory distress. Skin: Skin warm and dry. Normal skin color. Normal skin turgor. No rashes. Abd: obese, gravid uterus palpable between the umbilicus and the xiphoid process. pelvic deferred Extremities: normal inspection of the left hip. no ecchymosis or deformity. soft tissue tenderness of the anterior and lateral hip, normal ROM of the left hip and knee Neuro: Oriented X 3. No motor deficit. No sensory deficit. 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 She states she is currently 25 weeks [place] 12/14/22, was advised by OB to come to ED. Denies and vaginal bleeding, pelvic pain, reports positive movement. Full AROM to left hip, left anterior proximal leg pain with point tenderness Plan: heart tones <Aishwarya Shen CNP - Last Filed: 08/31/22 15:45> Reevaluation(s) Reevaluation #1: FHT 150s. no vaginal bleeding. given tylenol for hip pain case d/w Dr. 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 <DAVE Smith - Last Filed: 08/31/22 16:54> Reevaluation #2: Spoke with OBGYN resident who accepts patient for transfer, recommending transfer via EMS <DAVE Smith - Last Filed: 08/31/22 16:54> Medical Decision Making Differential Diagnosis Differential Diagnoses: The differential diagnosis associated with the presentation includes <DAVE Smith - Last Filed: 08/31/22 16:54> Possible placental abruptio, spontaneous miscarriage, early labor, hip contusion, hip strain hip fracture <DAVE Smith - Last Filed: 08/31/22 16:54> Admission/Observation Consideration of admission/observation: Escalation of care including admission/observation considered <DAVE Smith - Last Filed: 08/31/22 16:54> Consult Healthcare Provider Management of the patient was discussed with: [place] Can Worker <DAVE Smith - Last Filed: 08/31/22 16:54> Dr. Mcclain - recommending transfer to [facility] for monitoring Casw d/w Chief OBGYN resident at [facility] who accepts patient to [facility] for m onitoring <DAVE Smith - Last Filed: 08/31/22 16:54> External Record Review External record reviewed: Office record, Outpatient record, Prior outpatient labs and Prior outpatient radiology <DAVE Smith - Last Filed: 08/31/22 16:54> Prescription Management I considered prescription management with: Pain Medication (tylenol only) <DAVE Smith - Last Filed: 08/10 09/28 16:54> Chronic Conditions Patient?s care impacted by: Other (, obesity ) <DAVE Smith - Last Filed: 08/31/22 16:54> Critical Care Time Critical Care Time Critical Care Time: Yes <DAVE Smith - Last Filed: 08/31/22 16:54> Total Critical Care Time: 35 <DAVE Smith - Last Filed: 08/31/22 16:54> Attestation: I have personally provided critical care time exclusive of time spent on separately billable procedures. Time includes review of old records, discussion with consultants, and monitoring for potential decompensation, arranging transfer. Intervention performed as documented. <DAVE Smith - Last Filed: 08/31/22 16:54> Discharge Plan Discharge Clinical Impression: Fall, Acute hip pain <Aishwarya Shen CNP - Last Filed: 08/31/22 15:45> Patient Disposition: [facility] <Aishwarya Shen CNP - Last Filed: 08/31/22 15:45> Transfer Details: [facility] <Aishwarya Shen CNP - Last Filed: 08/31/22 15:45> [facility] <DAVE Smith - Last Filed: 08/31/22 16:54> Prescriptions: No Action metoclopramide HCl [Reglan] 10 mg tablet 10 mg PO .qac PRN (Reason: nausea and vomiting) Qty: 60 0RF Rx Instructions: take 1 tablet about 1 hour prior to having meals prenat.vits,jemma,[id number]-[id number]-vfqcr Tablet 1 tab PO DAILY <Aishwarya Shen CNP - Last Filed: 08/31/22 15:45>
[2022-08-31 15:37] VITALS: BP 130/76; PULSE 124; RESP 16; TEMP 36.6; O2SAT 96; BMI 95.3
--- NOTE | 2022-08-31 16:59 | PM.OBCN ---
OB Consult Note - [facility] Data Service Date: 08/31/22 Primary Care Provider: None Physician Narrative I was consulted on Brisa Rowe who is a 22 year old female at 26 weeks of gestation presenting to the emergency evaluation after slipping on the stairs. She states she has been having left hip pain with ambulation since.? The pain is in the front of the hip and extends to the side of the hip.? No crampy abdominal pain, leakage of fluid or bleeding. Good movement. 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 no ecchymosis or deformity. soft tissue tenderness of the anterior and lateral hip, normal ROM of the left hip and knee heart rate 150s OB - CN: A/P Assessment and Plan (1) Fall: Status: Acute Assessment and Plan: Recommended to DAVE Smith to transfer the patient to [facility] for evaluation/ monitoring. I spent a total of 20 minutes reviewing the chart, communicating with the emergency room provider and documenting in the medical record Time Spent With Patient Time: Total time managing care of this patient today ____ minutes.
--- NOTE | 2022-08-31 17:10 | MHC.EDTECH ---
pt to be transfered bls to [facility]. Provider made the call accepting provider is Dr Cristo Vidal. Jone will be taking pt shortly.
== END 2022-08-31 17:50 | disposition short-term general hospital (02) ==
PROVIDERS: Emergency Provider Emergency Medicine Emergency Medical Services
DX: O9A.212 Injury, poisoning and certain other consequences of external causes complicating pregnancy, second trimester (principal); S79.912A Unspecified injury of left hip, initial encounter; G89.11 Acute pain due to trauma; M25.552 Pain in left hip; Z3A.26 26 weeks gestation of pregnancy; W10.8XXA Fall (on) (from) other stairs and steps, initial encounter; Y93.9 Activity, unspecified; Y92.009 Unspecified place in unspecified non-institutional (private) residence as the place of occurrence of the external cause; Y99.9 Unspecified external cause status
CPT/HCPCS: 99285